=== PATIENT | female | born 1980 | race Hispanic/Latino ===

== ENCOUNTER 2017-04-12 10:04 | Emergency (ER) | payer SELFPAY ==
[2017-04-12 10:06] VITALS: BP 105/63; PULSE 79; RESP 16; TEMP 98; O2SAT 99; BMI 22.3
[2017-04-12] MEDS ORDERED: diaZEpam 10 mg/2 ml Inj IM ONE (11:05)
--- NOTE | 2017-04-12 12:31 | ED PDOC ---
HPI: Back Time Seen by Provider: 04/12/17 10:32 Chief Complaint (Nursing): Back Pain Chief Complaint (Provider): back pain History Per: Patient History/Exam Limitations: no limitations Additional Complaint(s): 37yo F in ED for eval of acute lower back pain after [facility]-without hematuira, vomiting nausea fever lower ext swelling, abd pain fever chills. MD Jose Juan-her performing surgeon called ER suggesting pt may benefit from muscle relaxer and non opiates. Pt was seen in his office this week with negative CT scan of lumber spine. Past Medical History Reviewed: Historical Data, Nursing Documentation, Vital Signs Vital Signs: Last Vital Signs Temp 98 F 04/12/17 10:05 Pulse 79 04/12/17 10:05 Resp 16 04/12/17 10:05 BP 105/63 04/12/17 10:05 Pulse Ox 99 04/12/17 10:05 - Medical History PMH: Back Problems - Family History Family History: States: No Known Family Hx - Home Medications Home Medications: Ambulatory Orders Medication Instructions Recorded oxyCODONE/Acetaminophen [Percocet 1 ea PO Q6 #12 tab 04/12/17 5/325 mg Tab] - Allergies Allergies/Adverse Reactions: Allergies Allergy/AdvReac Type Severity Reaction Status Date / Time No Known Allergies Allergy Verified 04/12/17 10:18 Review of Systems ROS Statement: Except As Marked, All Systems Reviewed And Found Negative Constitutional: Negative for: Fever, Chills Musculoskeletal: Positive for: Back Pain Physical Exam - Reviewed Nursing Documentation Reviewed: Yes Vital Signs Reviewed: Yes - Physical Exam Appears: Positive for: Well, Non-toxic, No Acute Distress Head Exam: Positive for: ATRAUMATIC, NORMAL INSPECTION, NORMOCEPHALIC Skin: Positive for: Normal Color, Warm, DRY Cardiovascular/Chest: Positive for: Regular Rate, Rhythm Respiratory: Positive for: CNT, Normal Breath Sounds Gastrointestinal/Abdominal: Positive for: Normal Exam, Bowel Sounds, Soft. Negative for: Tenderness Back: Positive for: Vertebral Tenderness, Muscle Spasm, Other (no evidence of cellulites noted. ). Negative for: L CVA Tenderness, R CVA Tenderness Extremity: Positive for: Normal ROM Neurologic/Psych: Positive for: Alert, Oriented - Laboratory Results Result Diagrams: 04/12/17 13:50 04/12/17 13:50 - ECG O2 Sat by Pulse Oximetry: 99 - Progress ED Course And Treament: will trial NS, flexril and torodol for pain. pt took Valium and alieve this AM. Medical Decision Making Medical Decision Making: pt offered admission for intractable back pain-but declined. PT pain improved and is more tolerabel with use of percoet. Pt ludin lbe d.c with 5days max of percocet Rx and will need pain mngt f.u moving forward. Disposition - Clinical Impression Clinical Impression: Back pain - Patient ED Disposition Is Patient to be Admitted: No Counseled Patient/Family Regarding: Studies Performed, Diagnosis, Need For Followup, Rx Given - Disposition Referrals: [facility] [Outside] Disposition: Routine/Home Disposition Time: 14:55 Condition: STABLE Prescriptions: oxyCODONE/Acetaminophen [Percocet 5/325 mg Tab] 1 ea PO Q6 #12 tab Instructions: Acute Low Back Pain (DC) Forms: [employer] (Bangladeshi)
[2017-04-12] MEDS ORDERED: Sodium Chloride 0.9% 1,000 ML IV STA (12:32)
[2017-04-12] MEDS ORDERED: Oxycodone/Acetaminophen 5/325 mg Tab PO STA (13:07)
[2017-04-12] MEDS ORDERED: Oxycodone/Acetaminophen 5/325 mg Tab ONE (13:20)
[2017-04-12 14:04] LABS: BASO # 0.1 K/uL (0.0-0.2); EOS # 0.1 K/uL (0.0-0.7); LYMPH # 1.6 K/uL (1.0-4.3); LYMPH % 19.8 % (20.0-40.0); MEAN CELL VOLUME 90.1 fl (81.0-99.0); MEAN CORPUSCULAR HEMOGLOBIN 31.1 pg (27.0-31.0); MEAN CORPUSCULAR HGB CONC 34.5 g/dL (33.0-37.0); MEAN PLATELET VOLUME 8.1 fl (7.2-11.7); MONO # 0.6 K/uL (0.0-0.8); MONO % 7.9 % (0.0-10.0); NEUT # 5.8 K/uL (1.8-7.0); NEUT % 70.3 % (50.0-75.0); NRBC % 0.1 % (0.0-0.0); RED CELL DISTRIBUTION WIDTH 12.6 % (11.5-14.5); WHITE BLOOD COUNT 8.2 K/uL (4.8-10.8)
[2017-04-12 14:14] LABS: ALB/GLOB RATIO 1.5 (1.0-2.1); ALKALINE PHOSPHATASE 79 U/L (38-126); ALT/SGPT 37 U/L (9-52); AST/SGOT 23 U/L (14-36); BILIRUBIN,TOTAL 1.1 mg/dl (0.2-1.3); BLOOD UREA NITROGEN 12 mg/dl (7-17); CALCIUM 9.3 mg/dL (8.4-10.2); CARBON DIOXIDE 22 mmol/L (22-30); CHLORIDE 110 mmol/L (98-107); GFR AFRICAN-AMERICAN > 60; GLUCOSE,RANDOM 94 mg/dL (65-105); POTASSIUM 3.6 MMOL/L (3.6-5.0); SODIUM 144 mmol/l (132-148)
== END 2017-04-12 15:30 | disposition home or self-care (01) ==
LOC: H.ER 10:04
DX: M54.9 Dorsalgia, unspecified (principal); Z98.890 Other specified postprocedural states
CPT/HCPCS: 80053; 81025; 85025; 96360; 96372; 99283; J1885; J7040